=== PATIENT | male | born 1940 | race Caucasian/White ===

== ENCOUNTER 2016-08-10 01:32 | Emergency (ER) | payer MEDICARE, MEDICAID ==
[2016-08-10] MEDS ORDERED: LIDOCAINE 2% JELLY GLYDO 6 ML TOPICAL ONE ×2 (03:00→04:20)
[2016-08-10] MEDS ORDERED: SODIUM CHLORIDE 0.9% 1,000 ML ONE (04:09)
== END 2016-08-10 06:54 | disposition home or self-care (01) ==
LOC: ER 01:32
DX: N40.0 Benign prostatic hyperplasia without lower urinary tract symptoms (principal); R33.9 Retention of urine, unspecified
CPT/HCPCS: 51703; 81001; 87088